=== PATIENT | female | born 1955 | race Caucasian/White ===

== ENCOUNTER 2018-01-30 10:27 | Inpatient (IN) | payer BC ==
[~2018-01-30] VITALS: Ht 157.5 cm; Wt 100.9 kg
[2018-01-30 11:12] LABS: BASOPHIL (%) 0.2 % (0-1); EOSINOPHIL (%) 0.1 % (0-5); HEMATOCRIT 37.8 % (36.0-46.0); HEMOGLOBIN 13.1 G/DL (11.9-15.5); LYMPHOCYTE (%) 11.7 % (15-42); LYMPHOCYTE COUNT 1.8 K/uL (1.0-2.8); MCH 29.9 PG (29.0-34.0); MCHC 34.7 G/DL (30.0-36.0); MCV 86.3 FL (83-99); MONOCYTE (%) 6.1 % (3-12); NEUTROPHIL (%) 79.9 % (45-76); NEUTROPHIL COUNT 12.6 K/uL (1.8-6.4); PLATELET COUNT 311 K/uL (156-360); RBC DIS.WIDTH-SD 47.8 % (39-53); RED BLOOD COUNT 4.38 M/uL (3.80-5.20); WHITE BLOOD COUNT 15.8 K/uL (4.1-10.2)
[2018-01-30 11:20] LABS: CHLORIDE 103 mEq/L (99-109); SODIUM 139 mEq/L (136-147)
[2018-01-30 11:22] LABS: GLUCOSE 253 mg/dL (70-99)
[2018-01-30 11:25] LABS: SERUM ETHYL ALCOHOL < 10 mg/dL
[2018-01-30 11:26] LABS: CREATININE 0.7 mg/dL (0.6-1.3); GFR ESTIMATE (CALCULATED) > 59 mL/min/
[2018-01-30 11:27] LABS: UREA NITROGEN (BUN) 22 mg/dL (9-23)
[2018-01-30 13:02] LABS: APPEARANCE CLEAR ((CLEAR)); BILIRUBIN NEGATIVE; BLOOD NEGATIVE; COLOR YELLOW ((YELLOW)); GLUCOSE (STRIP) >=500; KETONES NEGATIVE; LEUKOCYTES NEGATIVE; NITRITE NEGATIVE; PROTEIN (STRIP) NEGATIVE; SPECIFIC GRAVITY 1.022 (1.000-1.030); UCUL ADDED? NO; UROBILINOGEN 0.2 MG/DL (0.2-1.0)
[2018-01-30 13:13] LABS: VALPROIC ACID (DEPAKOTE) < 10.0 MCG/ML (50-100)
[2018-01-30 13:18] LABS: AMPHETAMINE NEGATIVE (500 ng/mL); BARBITURATES NEGATIVE (200 ng/mL); BENZODIAZEPINES NEGATIVE (150 ng/mL); BUPRENORPHINE NEGATIVE (10 ng/mL); COCAINE NEGATIVE (150 ng/mL); METHADONE NEGATIVE (200 ng/mL); METHAMPHETAMINE NEGATIVE (500 ng/mL); OPIATES (MORPHINE) NEGATIVE (100 ng/mL); OXYCODONE NEGATIVE (100 ng/mL); PHENCYCLIDINE NEGATIVE (25 ng/mL); PROPOXYPHENE NEGATIVE (300 ng/mL); THC CANNABINOIDS NEGATIVE (50 ng/mL); TRICYCLIC ANTIDEPRESSANTS NEGATIVE (300 ng/mL)
[2018-01-30] MEDS ORDERED: SYNTHROID175 MCG PO (15:54)
[2018-01-30] MEDS ORDERED: DEPAKOTE500 MG PO (15:54)
[2018-01-30 16:23] VITALS: BP 170/79
[2018-01-30 16:38] VITALS: BP 170/79
[2018-01-30] MEDS ORDERED: LASIX20 MG PO (17:41)
[2018-01-31 08:08] VITALS: BP 144/72
[2018-01-31] MEDS ORDERED: DEPAKOTE ER500 MG PO (10:27)
[2018-01-31 15:40] VITALS: BP 133/62
[2018-02-01 07:46] VITALS: BP 117/60
[2018-02-01 09:52] LABS: ALBUMIN 3.2 G/DL (3.2-4.8); ALKALINE PHOSPHATASE 93 IU/L (3-129); ALT (GPT) 16 IU/L (3-49); AST (GOT) 9 IU/L (2-34); DIRECT BILIRUBIN 0.1 mg/dL (0.0-0.3); TOTAL BILIRUBIN 0.8 MG/DL (0.0-1.0)
[2018-02-01 10:03] LABS: THYROTROPIN (TSH) 1.3 MIU/L (0.4-5.5)
[2018-02-01 11:58] LABS: HEMOGLOBIN A1c (GLYCOHEMOGLOB) 6.7 % (Below 5.7)
[2018-02-01 15:36] VITALS: BP 122/59
[2018-02-02 07:50] VITALS: BP 194/80
[2018-02-02 11:30] VITALS: BP 135/62
[2018-02-02 15:46] VITALS: BP 146/69
[2018-02-03 08:01] VITALS: BP 116/56
[2018-02-03 15:39] VITALS: BP 148/70
[2018-02-04 09:29] VITALS: BP 110/58
[2018-02-04 15:25] VITALS: BP 113/66
[2018-02-05 07:49] VITALS: BP 138/73
[2018-02-05 15:18] VITALS: BP 111/57
[2018-02-06 07:36] VITALS: BP 120/58
[2018-02-06] MEDS ORDERED: KEFLEX500 MG PO (10:01)
[2018-02-06] MEDS ORDERED: ARIPIPRAZOLE10 MG PO (10:01)
== END 2018-02-06 14:31 | disposition home or self-care (01) | DRG 885 ==
LOC: EME 10:27 → 1WEST 14:31 → EDOF 14:31 → ENRESERV 15:38 → 1WEST 16:09
PROVIDERS: Physician Assistant Medical; Psychiatry & Neurology Psychiatry
DX: F31.13 Bipolar disorder, current episode manic without psychotic features, severe (principal); Z91.14 Patient's other noncompliance with medication regimen
CPT/HCPCS: 80048; 80076; 80164; 81003; 82948; 83036; 84443; 85025; 90839; 97150 GO; 97166 GO; 99281; 99284; G0480; Q0177